=== PATIENT | male | born 1970 | race Caucasian/White ===

== ENCOUNTER 2020-11-23 14:56 | Outpatient (CLI) | payer OTHER, SELFPAY ==
--- NOTE | ~2020-11-23 | XR_ITS ---
EXAMINATION: XR shoulder RT min 2V DATE: 11/23/2020 15:26 INDICATION: Right shoulder pain. TECHNIQUE: 4 views of right shoulder were obtained. COMPARISON: None. FINDINGS: Bone alignment is normal. No fracture. Glenohumeral joint is normal. There is mild acromioc lavicular joint osteoarthritis. There is mild scarring at the lung apices. IMPRESSION: 1. Mild acromioclavicular joint osteoarthritis. Reviewed, dictated and finalized at location A.
--- NOTE | ~2020-11-23 | XR_ITS ---
XR lumbar spine min 4V DATE: 11/23/2020 15:26 INDICATION: Right low back pain for one month TECHNIQUE: AP, lateral, coned lateral lumbosacral and bilateral oblique views COMPARISON: 12/10/2018 lumbar spine FINDINGS: There are 4 functional lumbar vertebrae. No fracture or spondylolysis or spondylolisthesis. The included lower thoracic and lumbar pedicles ar e intact. Lumbar and upper sacral interspaces are well preserved. The sacroiliac joints are intact. Bilateral protrusio acetabuli and hip osteoarthritis. IMPRESSION: Bilateral protrusio acetabuli and hip osteoarthritis Reviewed, dictated and finalized at location A.
== END 2020-11-23 14:57 | disposition home or self-care (01) ==
PROVIDERS: PCP Physician Assistant; Visit Provider Physician Assistant
DX: M25.511 Pain in right shoulder (principal); M54.5 Low back pain; M16.0 Bilateral primary osteoarthritis of hip; M24.7 Protrusio acetabuli; M19.011 Primary osteoarthritis, right shoulder
CPT/HCPCS: 72110; 73030

== ENCOUNTER 2021-01-29 18:11 | Emergency (ER) | payer OTHER, SELFPAY ==
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
--- NOTE | ~2021-01-29 | CT_ITS ---
EXAMINATION: CT brain wo con DATE: 01/29/2021 22:22 INDICATION: Headache TECHNIQUE: Computed tomography (CT) of the head was performed without intravenous contrast. The mA wa s adjusted according to patient size. Iterative reconstruction technique was employed. Exam dose: 60 5.33 mGy-cm total exam DLP. COMPARISON: None FINDINGS: No intracranial mass lesion or hemorrhage or cerebrovascular accident. No midline shift or mass effect. Normal ventricular size. No subdural or epidural hematoma. Approximately 1 mm x 11 mm soft tissue opacity in the posterior right maxillary sinus. There is an opacified posterior right ethmoid air cell. The mastoid air cells are normally developed and aerated. No fracture or bone destruction of the cranial vault. IMPRESSION: No significant intracranial abnormality Reviewed, dictated and finalized at [facility]. Reviewed, dictated and finalized at location A.
[2021-01-29 18:14] VITALS: BP 107/62; PULSE 87; RESP 20; TEMP 36.6; O2SAT 97
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
--- NOTE | 2021-01-29 22:05 | PC.NURSE ---
Pt to radiology
[2021-01-29 22:45] LABS: Basophils Percent Auto 0.5 % (0.2-1.2); Eosinophils Absolute Auto 0.1 K/mm3 (0-0.3); Eosinophils Percent Auto 1.1 % (0-4.4); Hematocrit 40.5 % (42.0-52.0); Hemoglobin 13.4 g/dL (14.0-18.0); Immature Granulocyte Absolute 0.02 K/mm3 (0.00-0.031); Immature Granulocyte Percent A 0.3 % (0-0.5); Lymphocytes Absolute Auto 2.41 K/mm3 (0.9-3.2); Lymphocytes Percent Auto 37.8 % (18.3-44.2); Mean Corpuscular HGB Conc 33.1 g/dl (32-36); Mean Corpuscular Hemoglobin 30.9 pg (26-34); Mean Corpuscular Volume 93.5 fl (80-100); Mean Platelet Volume 12.4 fl (7.4-10.4); Monocytes Absolute Auto 0.6 K/mm3 (0.1-0.6); Monocytes Percent Auto 8.9 % (2.6-8.5); Neutrophils Absolute Auto 3.3 K/mm3 (1.3-6.7); Neutrophils Percent Auto 51.4 % (45.5-73.1); Platelet Count Result 204 k/mm3 (150-375); Red Blood Count 4.33 M/mm3 (4.6-6.20); Red Cell Distribution Width 13.9 % (11.5-14.5); White Blood Count 6.4 K/mm3 (4.5-10.0)
[2021-01-29 23:24] LABS: Alanine Aminotransferase 11 U/L (4-50); Alkaline Phosphatase 95 U/L (38-126); Anion Gap 7 mmol/L (8-16); Aspartate Amino Transferase 19 U/L (17-59); Bilirubin,Total 0.5 mg/dL (0.2-1.3); Blood Urea Nitrogen 6 mg/dL (9-20); Calcium 9.2 mg/dL (8.4-10.2); Carbon Dioxide 28 mmol/L (22-30); Chloride 107 mmol/L (98-107); Estimated CRCL calculation 107 ml/min; Estimated Glomerular Filt Rate > 60; Glucose 114 mg/dL (65-110); Potassium 4.1 mmol/L (3.4-5.0); Sodium 142 mmol/L (137-145)
== END 2021-01-29 23:25 | disposition home or self-care (01) ==
PROVIDERS: Emergency Provider Emergency Medicine; PCP Physician Assistant
DX: S00.83XA Contusion of other part of head, initial encounter (principal); Y08.09XA Assault by strike by other specified type of sport equipment, initial encounter
CPT/HCPCS: 36415; 70450; 70486; 80053; 85025; 99284

== ENCOUNTER 2021-01-30 13:37 | Emergency (ER) | payer OTHER, SELFPAY ==
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
--- NOTE | ~2021-01-30 | CT_ITS ---
EXAMINATION: CT lumbar spine wo con DATE: 01/30/2021 18:09 INDICATION: Injury, low back pain TECHNIQUE: Computed tomography (CT) of the lumbar spine was performed without intravenous contrast. A utomated exposure control and iterative reconstruction technique were employed. Exam dose: 206.84 mG y-cm total exam DLP. COMPARISON: None FINDINGS: Normal alignment of the lumbar spine. No fracture or bone destruction or spondylolysis or spondylolisthesis. Lumbar and lumbosacral interspaces are well preserved. Bilateral nephrolithiasis without hydroureteronephrosis. IMPRESSION: No significant abnormality of the lumbar spine Bilateral nephrolithiasis Reviewed, dictated and finalized at [facility]. Reviewed, dictated and finalized at location A.
[2021-01-30 14:50] VITALS: BP 100/72; PULSE 72; RESP 16; TEMP 36.3; O2SAT 100
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
[2021-01-30] MEDS: CYCLOBENZAPRINE HCL 10 MG TABLET PO (17:53)
[2021-01-30] MEDS: ACETAMINOPHEN 500 MG TABLET 1000 MG PO (17:54)
== END 2021-01-30 19:54 | disposition home or self-care (01) ==
PROVIDERS: Emergency Provider Emergency Medicine; PCP Physician Assistant
DX: M24.7 Protrusio acetabuli (principal); M54.50 Low back pain, unspecified; F17.210 Nicotine dependence, cigarettes, uncomplicated
CPT/HCPCS: 72131; 73502; 99284; A9270

== ENCOUNTER 2022-05-15 12:36 | Emergency (ER) | payer OTHER, SELFPAY ==
--- NOTE | ~2022-05-15 | XR_ITS ---
EXAMINATION: XR elbow RT min 3V DATE: 05/15/2022 13:35 INDICATION: Anterior and lateral right elbow pain TECHNIQUE: Anteroposterior, two oblique and lateral views of the right elbow were obtained. COMPARISON: None. FINDINGS: Alignment is normal. No fracture or joint effusion. Mild osteoarthritis with nonuniform joint space n arrowing at the ulnotrochlear articulation. Soft tissues are unremarkable. IMPRESSION: 1. Mild osteoarthritis at the right elbow. No joint effusion or acute osseous abnormality. Reviewed, dictated and finalized at location A. X [employer] ADMINISTRATOR IMPRESSION: 1. Mild osteoarthritis at the right elbow. No joint effusion or acute osseous a bnormality.
[2022-05-15 12:57] VITALS: BP 138/75; PULSE 107; RESP 16; TEMP 37.4; O2SAT 99
--- NOTE | 2022-05-15 14:48 | ED.UPPEXIN ---
HPI - Extremity Injury (Upper) General Chief Complaint: Extremity Injury, Upper Stated Complaint: right elbow injury-work comp Time Seen by Provider: 05/15/22 14:21 History of Present Illness HPI narrative: Patient is a 51-year-old male presenting with right elbow pain. 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 States that he does a lot of repetitive movements. States that he has had several days of right elbow pain that is worsened with movement. States that he has been lifting more than 2 boxes at a time and his management recommends only doing a maximum of 2 boxes at once. States he is concerned that he has been overdoing it. He denies any other complaints or injuries. States he ran out of ibuprofen several days ago. Related Data Allergies Allergy/AdvReac Type Severity Reaction Status Date / Time No Known Allergies Allergy Verified 05/15/22 14:27 Review of Systems Review of Systems: All systems reviewed & are unremarkable except as noted in HPI and below PMFSH Past Medical History Medical History No active medical problems Social History Social History Smoking status: Current every day smoker Exam Narrative: GENERAL: Well-appearing, well-nourished, and in no acute distress. HEAD: Normocephalic, atraumatic. EYES: PERRLA and EOMI. ENT: Nares clear, no rhinorrhea or epistaxis. Mucous membranes moist. NECK: Supple. CHEST: No respiratory distress. HEART: Regular rate and rhythm. ABDOMEN: Soft, nontender, nondistended EXTREMITIES: Normal range of motion. No edema. No significant tenderness of the right elbow, no decreased ROM, no skin changes or evidence of infection, radial pulses 2+, distal ROM intact SKIN: Warm, dry, no rash. NEURO: No focal deficits. Alert and oriented x3. PSYCH: Normal mood and affect. Course Vital Signs Vital signs: Vital Signs Temperature 99.4 F 05/15/22 12:57 Pulse Rate 107 H 05/15/22 12:57 Respiratory Rate 16 05/15/22 12:57 Blood Pressure 138/75 05/15/22 12:57 Pulse Oximetry 99 05/15/22 12:57 Temperature 99.4 F 05/15/22 12:57 Pulse Rate 98 02/16/23 15:30 Respiratory Rate 15 05/15/22 15:30 Blood Pressure 134/92 H 05/15/22 15:30 Pulse Oximetry 97 05/15/22 15:30 MDM - Extremity Injury (Upper) MDM Narrative Medical decision making narrative: Patient is a 51-year-old male presenting with right elbow pain in the setting of overuse. Exam remarkable for the above. X-ray shows mild osteoarthritis of the right elbow but no other acute findings. Discussed appropriate supportive care. We will send in a prescription for Tylenol and ibuprofen. Advised to follow-up with his PCP. Appropriate return precautions given. Patient voiced understanding and is agreeable with plan. Discharged in stable condition. Differential Diagnosis Differential diagnosis: Likely fracture of humerus and other (radial fracture, ulnar fracture, olecranonon bursitis, arthritis) Critical Care Time Critical Care Time Critical Care Time: No Discharge Plan Discharge Clinical Impression: Elbow pain, right Patient Disposition: Home, Self-Care Condition: Stable Instructions: Antibiotic Form, Elbow Strain (ED) Additional Instructions: Please use Tylenol and ibuprofen for pain control. Please rest the affected elbow for the next several days. Please follow-up with your PCP. If your pain suddenly worsens, you develop decreased range of motion, fevers, or other concerning symptoms arise, please return to the ER. Prescriptions: New acetaminophen 500 mg tablet 500 mg PO Q6H PRN (Reason: pain) Qty: 30 0RF ibuprofen 400 mg tablet 400 mg PO TID PRN (Reason: pain) Qty: 30 0RF No Action cyclobenzaprine 10 mg tablet 10 mg PO TID PRN (Reason: muscle spasm) Qty: 10 0RF Follow-up/Referrals: Leoncio,LARISSA Perez [Primary Car
[2022-05-15 15:30] VITALS: BP 134/92; PULSE 98; RESP 15; O2SAT 97
== END 2022-05-15 15:32 | disposition home or self-care (01) ==
PROVIDERS: Emergency Provider Emergency Medicine; PCP Physician Assistant
DX: M70.831 Other soft tissue disorders related to use, overuse and pressure, right forearm (principal); F17.200 Nicotine dependence, unspecified, uncomplicated
CPT/HCPCS: 73080; 99283